=== PATIENT | male | born 1965 | race Two or more races ===

== ENCOUNTER 2021-02-04 01:01 | Emergency (ER) | payer MEDICAID ==
[~2021-02-04] VITALS: Ht 167.6 cm; Wt 81.6 kg
--- NOTE | 2021-02-04 01:20 | NUR ---
pt placed on 2L O2 via NC
--- NOTE | 2021-02-04 01:20 | NUR ---
rai 37 from home for etoh. pt family states he drank a bottle of tequila. rec'd zofran lpta by RA. pt sleeping w/ no acute distress. VSS. was placed in bed 12ER. on monitor . awaiting MD's eval
--- NOTE | 2021-02-04 01:25 | NUR ---
blood obtained and sent to lab
[2021-02-04] MEDS ORDERED: IV NS 0.9% 1,000 ML BAG IV ONE (01:30)
[2021-02-04 01:35] LABS: BASOPHILS # (AUTO) 0.1 /CMM (0.0-0.2); BASOPHILS % (AUTO) 0.8 % (0.0-2.0); EOSINOPHILS % (AUTO) 0.9 % (0.0-6.0); HEMATOCRIT 39 % (39-51); HEMOGLOBIN 13.3 g/dL (13.5-17.5); LYMPHOCYTES # (AUTO) 2.5 /CMM (0.8-4.8); LYMPHOCYTES % (AUTO) 27.6 % (20.0-44.0); MEAN CORPUSCULAR HGB CONC 34 g/dl (31.0-36.0); MEAN CORPUSCULAR VOLUME 90 fL (80-96); MONOCYTES # (AUTO) 0.4 /CMM (0.1-1.30); MONOCYTES % (AUTO) 4.8 % (2.0-12.0); NEUTROPHILS # (AUTO) 6.1 /CMM (1.8-8.9); NEUTROPHILS % (AUTO) 65.9 % (43.0-81.0); PLATELET COUNT (AUTO) 334 /CMM (150-450); WHITE BLOOD COUNT (AUTO) 9.2 K/uL (4.3-11.0)
[2021-02-04 01:56] LABS: ALBUMIN 3.7 g/dL (3.4-5.0); BILIRUBIN,TOTAL 0.2 mg/dL (0.2-1.0); CALCIUM, SERUM 8.6 mg/dL (8.5-10.1); CREATININE 0.8 mg/dL (0.6-1.3); POTASSIUM 3.2 mmol/L (3.5-5.1); TOTAL PROTEIN, SERUM 7.5 g/dL (6.4-8.2)
--- NOTE | 2021-02-04 01:57 | NUR ---
per lab, blood glucose is 357
--- NOTE | 2021-02-04 02:50 | NUR ---
betsy, son [phone]
[2021-02-04] MEDS ORDERED: IV PREMIX 0.45% NS + KCL 1,000 ML IV ONE ×2 (03:00→03:10)
--- NOTE | 2021-02-04 06:03 | NUR ---
pt cleaned, needs met
--- NOTE | 2021-02-04 07:41 | NUR ---
ASSESSED PT ON BED ASLEEP EASILY AROUSABLE, NOT IN RESPIRATORY DISTRESS, V/S STABLE, KEPT RESTED AND COMFORTABLE. WILL CONTINUE TO MONITOR.
--- NOTE | 2021-02-04 11:25 | NUR ---
SS consult: SS Consult requested for Alcohol abuse. The pt. is a 55-year male. SW met with pt. bedside Pt. is Z[place]ian Speaking only. SW conducted interview in Zambian. The pt. makes poor eye contact. Pt. appears unkempt. Pt. speech & thought process are WNL. The pt. is alert & oriented x 3. Pt. stated he is unsure about why he is in the hospital. SW explored pt.s drinking habits with pt. Pt. stated that he is not an alcoholic. Pt. stated he drinks occasionally about 1 x/ month and normally drinks beer. Pt. stated that he had been experiencing high blood pressure and he began drinking some tequila as he allegedly believed it would help with his high blood pressure. Pt. then stated that he believes it made his blood pressure worse. Patient stated that he has some tequila left over and he decided to chug it. Pt. states he does not remember what happened after that. SW encouraged pt. to follow MD or his PCP orders on treating his high blood pressure. Pt. agreed. SW explored if pt. was attempting suicide. pt. denies suicide attempt. Pt. denies SI/HI and Denies hallucinations. Pt. denies symptom of depression and denies Hx. Of mental illness. SW offered pt. addiction resources and pt. accepted them Pt. stated he will follow up with referrals if he feels he needs a rehab. Patient gave SW verbal consent tot speak with his son, Kirill Negron [phone]. SW called Kirill to collect collateral information. Per son, the family had not noticed pt. was drinking as he was in his room. Per Kirill, the pt. only drinks occasionally and alcohol has never been a problem for him. Per son, they found pt. non-responsive and pt. was having trouble breathing and foaming at the mouth and they called 911. Per son, there are no psychosocial triggers that he believes could have cause pt. to drink heavily. SARA informed Kirill that pt. was given addiction resources. Kirill expressed understanding. Discharge plan: Pt. lives at home [[address] [address]] with his , Mahogany and son, Kirill and daughter, Leah. Per pt. he would like to return there once ready for D/C. SARA discussed D/C plan with Dr. Law who is agreeable. ADDICTION RESOURCES provided: [facility] Substance Abuse Helpline(SAS)-[facility] Outpatient treatment, residential treatment, recovery support for youth and adults [facility] www.actionfaJobyallycContratan.do Shahla [place] [facility] Teen programs for drug/alcohol education and support [place] [place]. Program for adults, sliding scale provides support and education [facility] www.AdvizzerCrossReaderation.[place]ones; Outpatient/residential treatment programs; transition to sober living Cri-Help www.cri-help.org [place]; Outpatient and residential treatment programs; transition to sober living I-ADARP [facility] Drug Abuse Recovery Austin Rizo; Outpatient education and supportive programs for teens and adults [facility] www.[facility] [place].org [place]; Residential treatment and work program for females only [facility] [place] www.[facility] center[facility].[place]: Outpatient/residential treatment program for teens and young adults [facility] www.[facility].org [place] Detox, inpatient, outpatient for adults and youth [facility], [facility]; Outpatient programs and referrals to community residential programs. Alcoholics Anonymous -SFV information and meeting and schedules www.aa-intergroup.org Lz-Cyng-Pdjciqz https://al-anon.org/ [place] support groups for family of alcoholics. Marijuana Anonymous www.madistrict6.org -SFV listing of meetings Narcotics Anonymous www.na.org SOBER LIVING RESOURCES [facility] www.soberhousing.net A non-profit agency that provides resources to recovery and sober living homes throughout [facility] Sober Living Homes: A Work in [facility]id[facility] Recovery [facility], [place] [facility] [place] [facility] Sober Living Homes: [facility] x [address] My New Beginning, AMBER Odyssey [facility] Coed Sober Living Homes: [facility] [place] [place] Counseling--Outpatient [facility] [address] [facility] [place] [address] (Specializes in in-depth psychotherapy for emotional distress: anxiety, depression, interpersonal conflicts, life transitions, childhood abuse) [facility] [address] [place] [address] (Assist with solving problem marital difficulties, separation & divorce, aging parents, & grief, chronic & terminal illness) [facility] [address] [place] [address] (Deal with loss & grief, anxiety, marital difficulties) Homebound/Mental Health Services [address] [place] [address] (Provide in-home mental services to people who are incapable of leaving their homes) Organization for Needs of the Elderly Senior Service/Resource Center [address] [place] [address] [facility] [address] [place] [address] PSYCHIATRIC OUTPATIENT SERVICES [facility] Partial Hospitalization and Intensive Outpatient Program (Managed Care and [place] Only)[address] [facility] [phone] [facility] Partial Hospitalization and Outpatient [id number] Psychiatric. [address] [place], [place] [phone] [facility] Partial Hospitalization and Outpatient Zsiactk[address] [facility] [place], [place] [phone] [facility] [id number] [place], [place] [phone] [facility] Partial Hospitalization and Outpatient Ovbjthh98783 Jo Abbott, [phone] Crisis and Hotline Telephone Numbers 24-Hour service unless stated [place] Crisis Hotlines: ERN. Mental Health/Crisis Line........[phone] Suicide Prevention Center (24 Hours).......436.628.9905 Suicide Prevention Crisis Center.......[phone] (24 Hours) Assaults Against Women Hotline.........922.652.8717 (24 Hours -- [facility]) Women and Children Crisis Halfway...........[phone] (24 Hours) Child Abuse Hotline............519.915.8505 [facility] [place] of Childrens Services Rape Treatment Center (24 Hours)..........420.224.2319 Alcoholics Anonymous (24 Hours)..........425.622.4724 Cocaine Anonymous (24 Hours)............899.949.1907 Narcotics Anonymous (24 Hours)..........647.616.6382 ENRIQUE JAQUEZ [facility] [address] [place] [address] Mental Health Services Ayana Talbert [address] [place] [address] Services: Outpatient therapy for children, teens, young adults, adults, older adults, and families; Psychiatric services, medication support Crisis and Hotline Telephone Numbers 24-Hour service unless stated [place] Crisis Hotlines: ERN. Mental Health/Crisis Line........[phone] Suicide Prevention Center (24 Hours).......[phone] Suicide Prevention Crisis Center.......[phone] (24 Hours) Alcoholics Anonymous (24 Hours)..........623.804.5490 [place] Crisis Hotlines: Alcohol and Drug Helpline - Provides referrals to local facilities where adolescents and adults can seek help. Brief intervention. [facility] Helpline National [place] [facility] Ill 8-484-583-YOLANDA National Youth Crisis Hotline [place] [facility]. Provides free information on specific disorders, referral directory to mental health providers, national directory of local mental health associations (M-F, 9-5 EST) National [place] of Mental Health Information Line: Provide sinformation and literature on mental illness by disorder-for professionals and general public.
--- NOTE | 2021-02-04 11:35 | NUR ---
PT IS AWAKE, KINYARWANDA SPEAKING, AMBULATORY TO THE RESTROOM W/ STEADY GAIT. XSTABLE VITALS. WILL CALL FAMILY FOR CHILDCARE AIDE.
--- NOTE | 2021-02-04 12:19 | NUR ---
PT IS MEDICALLY CLEARED PER DR CHAMPION. AMBULATORY W/ STEADY GAIT. 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 IV removed. Catheter intact and site benign. Pressure and 4x4 applied to site. No bleeding noted.Patient discharged to home in stable condition. Written and verbal after care instructions given. Patient and Son Jama verbalizes understanding of instruction.
[2021-02-04 12:21] VITALS: BP 126/64
== END 2021-02-04 12:23 | disposition home or self-care (01) ==
LOC: ER 01:04
DX: F10.121 Alcohol abuse with intoxication delirium (principal); E11.65 Type 2 diabetes mellitus with hyperglycemia; E87.6 Hypokalemia; I10 Essential (primary) hypertension; Y90.8 Blood alcohol level of 240 mg/100 ml or more
CPT/HCPCS: 36415; 70450; 71045; 72125; 80048; 80076; 80143; 80320; 82010; 85025; 93005; 96361; 96365; 96366; 99285; J7030 ×2; L0172; G0480